=== PATIENT | male | born 1975 | race Caucasian/White ===

== ENCOUNTER → 2017-10-07 08:50 | Outpatient (CLI) | payer MEDICAID ==
[~2017-10-07 08:50] MED LIST: OMEPRAZOLE20 M1 PO
== END | disposition home or self-care (01) ==
LOC: D.NM 08:50
DX: R10.11 Right upper quadrant pain (principal)

== ENCOUNTER 2017-11-12 06:30 | Day surgery (SDC) | payer MEDICAID ==
[~2017-11-12] VITALS: Ht 180.3 cm; Wt 122.6 kg
[2017-11-12 07:38] VITALS: BP 118/75; Ht 180.3 cm; Wt 122.6 kg
[2017-11-12] MEDS ORDERED: HYDROCODON-ACE1 EAC7 PO (09:43)
== END 2017-11-12 12:12 | disposition home or self-care (01) ==
LOC: D.OPS 06:30 → D.PAN 10:30 → D.OPS 12:12
DX: K82.8 Other specified diseases of gallbladder (principal)